=== PATIENT | male | born 1990 | race Caucasian/White ===

== ENCOUNTER 2017-07-26 16:21 | Emergency (ER) | payer BC, OTHER ==
[2017-07-26] MEDS ORDERED: Lidocaine 1% PF 5 ML VIAL ONE (16:50)
[2017-07-26] MEDS ORDERED: Ibuprofen 800 MG TAB ONE (16:50)
[2017-07-26] MEDS ORDERED: Bacitracin Zinc Ointment 30 gm TUBE ONE (17:37)
[2017-07-26] MEDS ORDERED: Bacitracin Zinc 1 Packet ONE (17:38)
== END 2017-07-26 17:53 | disposition home or self-care (01) ==
LOC: SCSER 16:21
DX: S61.211A Laceration without foreign body of left index finger without damage to nail, initial encounter (principal); W29.0XXA Contact with powered kitchen appliance, initial encounter; Y92.009 Unspecified place in unspecified non-institutional (private) residence as the place of occurrence of the external cause
CPT/HCPCS: 12001; J2001

== ENCOUNTER 2019-12-19 16:00 | Outpatient (CLI) | payer BC | END 2019-12-19 16:01 | disposition home or self-care (01) | LOC: SLEEPLAB 16:00 | PROVIDERS: ATTEND Otolaryngology Otolaryngic Allergy | DX: G47.33 Obstructive sleep apnea (adult) (pediatric) (principal); R06.83 Snoring | CPT/HCPCS: 95801 ==